=== PATIENT | male | born 1970 | race Caucasian/White ===

== ENCOUNTER 2020-05-09 11:03 | Emergency (ER) | payer BC ==
[2020-05-09] MEDS ORDERED: KETOROLAC TROMETHAMINE 60 MG/2 ML VIAL ONE (11:35)
== END 2020-05-09 12:28 | disposition home or self-care (01) ==
LOC: EDH 11:03
DX: M25.562 Pain in left knee (principal); Z72.0 Tobacco use
CPT/HCPCS: 73562; 96372; 99284; J1885